=== PATIENT | female | born 1975 | race American Indian/Alaskan Native ===

== ENCOUNTER 2017-04-14 08:10 | Outpatient (CLI) | payer BC ==
--- NOTE | 2017-04-15 15:36 | Mammography Report ---
BILATERAL DIGITAL SCREENING MAMMOGRAM WITH CAD:04/14/17 CLINICAL: Baseline screening. FINDINGS: The breasts are heterogeneously dense, which may obscure small masses. Bilateral asymmetries require additional imaging. Mild architectural distortion associated with a left outer asymmetry on the CC view. No suspicious calcifications. IMPRESSION: Bilateral asymmetries requiring further workup. BI-RADS CATEGORY: 0 -- Needs Additional Imaging RECOMMENDATION: Recall for bilateral ML and spot compression views and bilateral breast ultrasound if needed. ACR BI-RADS MAMMOGRAPHIC CODES: 0 = Needs additional imaging evaluation; 1 = Negative; 2 = Benign; 3 = Probably benign; 4 = Suspicious; 5 = Malignant; 6 = Known biopsy-proven malignancy COMMENT: 1. Dense breast tissue, i.e., adenosis, fibrocystic changes, etc., may obscure an underlying neoplasm. 2. Approximately 10% of cancers are not detected with mammography. 3. A negative mammography report should not delay biopsy if a clinically suspicious mass is present.
== END 2017-04-14 08:11 | disposition home or self-care (01) ==
LOC: SPVWC 08:10
PROVIDERS: ATTEND Internal Medicine
DX: Z12.31 Encounter for screening mammogram for malignant neoplasm of breast (principal)
CPT/HCPCS: 77067

== ENCOUNTER 2017-05-02 09:58 | Outpatient (CLI) | payer BC ==
--- NOTE | 2017-05-02 11:39 | Mammography Report ---
Spot compression magnification view of asymmetry is right breast and focal asymmetry left breast followed by sonographic examination of left breast: Findings: There is complete effacement noted of the focal asymmetries right breast on spot magnification view. No mass or microcalcification seen. There is persistence of focal dense asymmetry noted upper posterior left breast on spot magnification view. Margin is partially obscured. Sonographic examination of left breast reveals a complex cyst measuring 0.5 cm 0.4 cm in diameter at 12:00 position 5 cm from nipple. There is also another complex cyst identified at 2:00 position 7 cm from nipple measuring 0.7 x 0.3 cm in diameter which probably corresponds to the density seen on mammogram. Incidentally noted a small cyst measuring 0.2 x 0.18 cm at 5:00 position 4 cm from nipple. Benign axillary lymph node is also identified. Impression: Probably benign complex cyst corresponding to density seen in the left mammogram. 6 month followup with left breast sonogram in the left mammogram. BI-RADS CATEGORY: 3 = Probably benign ACR BI-RADS MAMMOGRAPHIC CODES: 0 = Needs additional imaging evaluation; 1 = Negative; 2 = Benign; 3 = Probably benign; 4 = Suspicious; 5 = Malignant; 6 = Known biopsy-proven malignancy COMMENT: 1. Dense breast tissue, i.e., adenosis, fibrocystic changes, etc., may obscure an underlying neoplasm. 2. Approximately 10% of cancers are not detected with mammography. 3. A negative mammography report should not delay biopsy if a clinically suspicious mass is present. COMMENT: Patient follow-up letters are generated in [employer].
== END 2017-05-02 09:59 | disposition home or self-care (01) ==
LOC: SPVWC 09:58
PROVIDERS: ATTEND Internal Medicine
DX: N60.02 Solitary cyst of left breast (principal); R92.8 Other abnormal and inconclusive findings on diagnostic imaging of breast